=== PATIENT | female | born 1970 | race Two or more races ===

== ENCOUNTER → 2017-06-20 | Emergency (ER) | payer OTHER ==
[~2017-06-20] VITALS: Ht 165.1 cm; Wt 56.7 kg
[~2017-06-20] MED LIST: KETO10TA2 PO
== END | disposition home or self-care (01) ==
LOC: ER 20:37
DX: S93.692A Other sprain of left foot, initial encounter (principal); S80.01XA Contusion of right knee, initial encounter; W18.39XA Other fall on same level, initial encounter; Y93.01 Activity, walking, marching and hiking; Y92.480 Sidewalk as the place of occurrence of the external cause; Y99.8 Other external cause status

== ENCOUNTER 2017-08-19 12:38 | Outpatient (CLI) | payer OTHER | END 2017-08-19 12:53 | disposition home or self-care (01) | LOC: NUCLEAR 12:38 | DX: M81.0 Age-related osteoporosis without current pathological fracture (principal) ==

== ENCOUNTER 2018-02-10 16:31 | Outpatient (CLI) | payer OTHER | END 2018-02-10 16:49 | disposition home or self-care (01) | LOC: RAD 16:31 | DX: M54.5 Low back pain (principal); M79.641 Pain in right hand; M79.644 Pain in right finger(s) ==

== ENCOUNTER 2018-02-12 15:23 | Outpatient (CLI) | payer OTHER | END 2018-02-12 15:52 | disposition home or self-care (01) | LOC: MRI 15:23 | DX: M54.5 Low back pain (principal) | CPT/HCPCS: 72148 ==

== ENCOUNTER 2019-06-23 15:10 | Outpatient (CLI) | payer OTHER | END 2019-06-23 15:22 | disposition home or self-care (01) | LOC: RAD 15:10 | DX: M54.2 Cervicalgia (principal); M25.512 Pain in left shoulder; M25.511 Pain in right shoulder ==

== ENCOUNTER 2019-10-31 14:34 | Emergency (ER) | payer OTHER ==
[~2019-10-31] VITALS: Ht 165.1 cm; Wt 56.7 kg
[2019-10-31] MEDS ORDERED: CELEBREX200MG (14:45)
[2019-10-31] MEDS ORDERED: DRAMAMINE LESS25 MG PO (19:31)
== END 2019-10-31 22:11 | disposition home or self-care (01) ==
LOC: ER 14:34
DX: R42 Dizziness and giddiness (principal)

== ENCOUNTER 2019-12-07 12:17 | Outpatient (CLI) | payer OTHER ==
[~2019-12-07 12:17] MED LIST changes: +CELEBREX200MG; +DRAMAMINE LESS25 MG PO
== END 2019-12-07 12:34 | disposition home or self-care (01) ==
LOC: MAMO-SONO 12:17
PROVIDERS: ATTEND Obstetrics & Gynecology Maternal & Fetal Medicine
DX: Z12.31 Encounter for screening mammogram for malignant neoplasm of breast (principal); N63.10 Unspecified lump in the right breast, unspecified quadrant; N63.20 Unspecified lump in the left breast, unspecified quadrant; N64.4 Mastodynia; N60.11 Diffuse cystic mastopathy of right breast; D25.9 Leiomyoma of uterus, unspecified; N95.1 Menopausal and female climacteric states

== ENCOUNTER 2020-08-21 15:42 | Emergency (ER) | payer OTHER ==
[~2020-08-21] VITALS: Ht 165.1 cm; Wt 59.0 kg
== END 2020-08-21 19:21 | disposition home or self-care (01) ==
LOC: ER 15:42
DX: M94.0 Chondrocostal junction syndrome [Tietze] (principal); M54.2 Cervicalgia; M54.5 Low back pain

== ENCOUNTER 2021-11-12 12:03 | Outpatient (CLI) | payer OTHER | END 2021-11-12 12:15 | disposition home or self-care (01) | LOC: RAD 12:03 | PROVIDERS: ATTEND Chiropractor | DX: M54.50 Low back pain, unspecified (principal); M53.1 Cervicobrachial syndrome ==

== ENCOUNTER 2023-04-02 09:16 | Outpatient (CLI) | payer OTHER | END 2023-04-02 09:31 | disposition home or self-care (01) | LOC: MAMO-SONO 09:16 | PROVIDERS: ATTEND Obstetrics & Gynecology Maternal & Fetal Medicine | DX: Z12.31 Encounter for screening mammogram for malignant neoplasm of breast (principal); N63.0 Unspecified lump in unspecified breast; N64.4 Mastodynia; N60.11 Diffuse cystic mastopathy of right breast; R10.2 Pelvic and perineal pain ==

== ENCOUNTER → 2023-05-01 08:44 | Outpatient (CLI) | payer OTHER ==
[2023-05-01 09:53] LABS: HEMATOCRIT 38.8 % (36.0-45.00); HEMOGLOBIN 13.2 g/dL (12.0-15.00); MEAN CELL VOLUME 87.6 fL (80.00-100.00); MEAN CORPUSCULAR HEMOGLOBIN 29.9 pg (27.00-32.0); MEAN CORPUSCULAR HGB CONC 34.2 g/dl (32.0-36.0); PLATELET COUNT 206 K/uL (150-450); RED BLOOD COUNT 4.42 M/uL (4.00-6.00); RED CELL DISTRIBUTION WIDTH 12.9 % (11.5-14.5)
[2023-05-01 10:25] LABS: BILIRUBIN TOTAL 0.67 mg/dL (0.3-1.2); CHOL HDL RATIO 2.4 (0-5.0); CREATININE SERUM 0.82 mg/dL (0.55-1.02); GFR 72.92; POTASSIUM 4.02 mEq/L (3.5-5.1); TSH 1.45 uIU/mL (0.358-3.74)
[2023-05-01 11:57] LABS: PH,URINE 5.5 (5.0-8.0); URINE APPEARANCE Clear; URINE BILIRRUBIN Negative (NEGATIVE); URINE BLOOD Trace; URINE COLOR Yellow; URINE GLUCOSE Negative (NEGATIVE); URINE LEUKOCYTE Negative; URINE NITRATE Negative; URINE PROTEIN Negative (NEGATIVE); URINE UROBILINOGEN 0.2 E.U./dl
[2023-05-01 12:00] LABS: URINE BACTERIA 8.8 uL (0.0-1933); URINE EPITHELIAL CELLS 3.3 uL (0.0-38.8); URINE RBC 19.6 uL (0.0-20.8); URINE WBC 2.7 uL (0.0-23.2)
[2023-05-01 13:58] LABS: ob NEGATIVE (NEGATIVE)
== END | disposition home or self-care (01) ==
LOC: LAB 08:44
PROVIDERS: ATTEND Obstetrics & Gynecology Maternal & Fetal Medicine
DX: N80.9 Endometriosis, unspecified (principal); E03.8 Other specified hypothyroidism; D63.8 Anemia in other chronic diseases classified elsewhere; N30.90 Cystitis, unspecified without hematuria; E78.00 Pure hypercholesterolemia, unspecified; R73.9 Hyperglycemia, unspecified; K92.1 Melena; Z12.11 Encounter for screening for malignant neoplasm of colon; E55.9 Vitamin D deficiency, unspecified

== ENCOUNTER → 2023-06-30 13:44 | Outpatient (CLI) | payer OTHER | END | disposition home or self-care (01) | LOC: LAB 13:44 | PROVIDERS: ATTEND Orthopaedic Surgery | DX: E56.1 Deficiency of vitamin K (principal) ==

== ENCOUNTER 2023-07-23 13:10 | Outpatient (CLI) | payer OTHER | END 2023-07-23 13:12 | disposition home or self-care (01) | LOC: NUCLEAR 13:10 | PROVIDERS: ATTEND Orthopaedic Surgery | DX: M81.0 Age-related osteoporosis without current pathological fracture (principal) ==

== ENCOUNTER 2024-05-12 12:44 | Outpatient (CLI) | payer OTHER | END 2024-05-12 12:51 | disposition home or self-care (01) | LOC: RAD 12:44 | PROVIDERS: ATTEND Orthopaedic Surgery | DX: M79.605 Pain in left leg (principal); M54.50 Low back pain, unspecified ==